=== PATIENT | male | born 1935 | race Caucasian/White ===

== ENCOUNTER 2018-10-06 11:00 | Inpatient (IN) | payer MEDICARE, OTHER ==
[2018-10-11] MEDS ORDERED: Acetaminophen 325 MG TAB PO PRN (17:38)
[2018-10-11] MEDS ORDERED: Communication Order-Pharmacy FS SCH (17:45)
[2018-10-11 17:52] VITALS: BMI 25.0
[2018-10-11 18:14] LABS: #Basophils 0.1 thou/uL (0.0-0.2); #Eosinphils 0.2 thou/uL (0.0-0.7); #Lymphocytes 1.3 thou/uL (1.20-3.40); #Monocytes 0.7 thou/uL (0.11-0.59); #Neutrophils 4.1 thou/uL (1.40-6.50); %Basophils 0.8 % (0.0-1.0); %Eosinophils 3.1 % (0.0-10.0); %Lymphocytes 20.1 % (21.0-51.0); %Monocytes 11.3 % (0.0-10.0); %Neutrophils 64.7 % (42.0-75.0); Hemoglobin 11.8 g/dL (14.0-18.0); Mean Corpuscular HGB CONC 33.4 g/dL (32.0-36.0); Mean Corpuscular Hemoglobin 29.6 pg (27.0-31.0); Mean Corpuscular Volume 88.7 fL (78.0-98.0); Platelet Count 233 thou/uL (130-400); RBC Distribution Width 12.2 % (11.5-14.5); Red Blood Cell (RBC) Count 3.97 mill/uL (4.70-6.10); White Blood Cell (WBC) Count 6.4 thou/uL (4.8-10.8)
[2018-10-11 18:22] LABS: PTT 27.7 SEC (22.9-36.1); Prothrombin Time 13.2 SEC (12.0-14.7)
[2018-10-11 18:47] LABS: Anion Gap 13 mmol/L (10-20); BUN (Urea Nitrogen) 16 mg/dL (8.4-25.7); Calc. Creatinine Clearance 71 mL/min (70-130); Calcium 9.1 mg/dL (7.8-10.44); Carbon Dioxide 25 mmol/L (23-31); Chloride 106 mmol/L (98-107); Estimated GFR-MDRD 90; Glucose 89 mg/dL (83-110); Potassium 4.1 mmol/L (3.5-5.1); Sodium 140 mmol/L (136-145)
[2018-10-11] MEDS: Atorvastatin Calcium 10 MG TAB PO SCH (21:51)
[2018-10-12] MEDS ORDERED: CEFAZOLIN 2 GM/50 ML-DEXTROSE 2 GM in Premix Bag 1 BAG IVPB SCH (06:00)
[2018-10-12] MEDS ORDERED: Fentanyl 100 MCG/2 ML VIAL ONE ×2 (06:33→09:52)
[2018-10-12] MEDS ORDERED: Sodium Chloride 0.9% 10 ML ONE (06:34)
[2018-10-12] MEDS ORDERED: Bupivacaine/Epinephrine 0.25% 30 ML VIAL ONE (06:34)
[2018-10-12] MEDS ORDERED: Lidocaine 0.5%/Epinephrine 1:200,000 50 ml Vial ONE (06:34)
[2018-10-12] MEDS ORDERED: Thrombin 5000 UNITS/5 ML VIAL ONE (06:35)
[2018-10-12] MEDS ORDERED: Bacitracin Zinc Ointment 30 gm TUBE ONE (06:35)
[2018-10-12] MEDS ORDERED: CEFAZOLIN 2 GM/50 ML BAG ONE (06:49)
[2018-10-12] MEDS ORDERED: Ondansetron HCl/PF 4 MG/2 ML Vial IVP PRN (09:31)
[2018-10-12] MEDS ORDERED: HYDROcodone/Acetaminophen 5/325 mg Tablet PO PRN (10:03)
[2018-10-12] MEDS: traMADol HCl 50 MG TAB PO PRN (11:01)
[2018-10-12] MEDS ORDERED: Rocuronium Bromide 10 MG/ML (10ML VIAL) ONE (13:10)
[2018-10-12] MEDS ORDERED: Glycopyrrolate 0.2 MG/ML 5 ML SYRINGE ONE (13:10)
[2018-10-12] MEDS ORDERED: ePHEDrine/0.9% NaCl/PF SYRINGE 50 mg/10 ml ONE (13:10)
[2018-10-12] MEDS ORDERED: Lidocaine 1% PF 5 ML VIAL ONE (13:10)
[2018-10-12] MEDS ORDERED: PROPOFOL 200 MG/20 ML VIAL ONE (13:10)
[2018-10-12] MEDS ORDERED: Ondansetron PF 4 MG/2 ML Vial ONE (13:10)
[2018-10-12] MEDS ORDERED: Dexamethasone 20 MG/5 ML VIAL ONE (13:10)
[2018-10-12] MEDS: Labetalol HCl 100 MG/20 ML VIAL SLOW IVP PRN ×2 (13:54→15:21)
[2018-10-12] MEDS ORDERED: CEFAZOLIN 2 GM in Sodium Chloride 0.9% 100 ML IVPB SCH (14:00)
[2018-10-12] MEDS ORDERED: Cepastat Lozenges 1 LOZ PO PRN (14:03)
--- NOTE | 2018-10-12 15:42 | OP ---
DATE OF PROCEDURE: 10/11/2018 PREOPERATIVE DIAGNOSES: 1. Normal-pressure hydrocephalus. 2. History of abdominal sarcoma removal. POSTOPERATIVE DIAGNOSES: 1. Normal-pressure hydrocephalus. 2. History of abdominal sarcoma removal. PROCEDURE: Diagnostic laparoscopy and laparoscopic placement of permanent intraabdominal drain (abdominal portion of ventriculoperitoneal shunt). ANESTHESIA: General. ESTIMATED BLOOD LOSS: Minimal. COMPLICATIONS: None. SPECIMENS: None. FINDINGS: Significant intraabdominal adhesions. DESCRIPTION OF PROCEDURE: The patient was taken to the operating room and laid supine on the operating room table. After general anesthetic was obtained, the abdomen and chest, side of scalp, neck were all prepped and draped in a sterile fashion. Left subcostal 5-mm Optiview trocar was attempted to be placed. The preperitoneal space was entered. The abdominal cavity cannot be entered secondary to adhesions, so incision was made below the umbilicus and cautery was dissected down to and score the fascia. Very carefully, a 5-mm laparoscopic sleeve was placed again in the preperitoneal space within dense adhesions. No obvious injury to any intraabdominal structures, but the upper abdomen cannot be seen. Incision was made subxiphoid and the cautery was used to dissect down to and score the fascia. A Skye clamp was passed into the abdomen under no tension, and a 5 port was placed and now the anterior abdomen can be seen. This, 5-mm port was then able to be placed below the umbilicus, 5-mm port was placed in the right abdomen as the RN PROVIDER RELATIONS shunt tubing was tunneled from above to the subxiphoid incision. It was passed into the abdomen through a 5-mm port site up over the liver. All port sites were infiltrated using local anesthetic. The fascial defect at the subxiphoid and infraumbilical areas were closed using PDS suture. All ports were removed and the skin was closed using 4-0 Monocryl and Dermabond. No obvious injury to any intraabdominal structures. The patient was sent returned to Recovery in stable condition. Job ID: [id number]
[2018-10-12] MEDS: CEFAZOLIN 2 GM/50 ML-DEXTROSE 2 GM in Premix Bag 1 BAG IVPB SCH ×2 (16:57→23:20)
[2018-10-12] MEDS: Atorvastatin Calcium 10 MG TAB PO SCH (20:11)
[2018-10-13] MEDS: CEFAZOLIN 2 GM/50 ML-DEXTROSE 2 GM in Premix Bag 1 BAG IVPB SCH ×2 (08:29→16:19)
--- NOTE | 2018-10-13 09:00 | PRG ---
DATE OF SERVICE: 10/13/2018 Mr. Guaman is postoperative day 1 from a ventriculoperitoneal shunt and he appears to be more lucid and conversant this morning, very pleased with how he is doing at this point. We will make arrangements for a transfer to inpatient rehab as soon as we can. Job ID: [id number]
--- NOTE | 2018-10-13 10:41 | OP ---
DATE OF PROCEDURE: 10/12/2018 PREOPERATIVE DIAGNOSIS: Normal-pressure hydrocephalus. POSTOPERATIVE DIAGNOSIS: Normal-pressure hydrocephalus. PROCEDURES PERFORMED: Right frontal ventriculoperitoneal shunt with Strata valve set to 1.5. I also did the surgery with Dr. Mu Tsai. DESCRIPTION OF PROCEDURE: After informed consent was obtained from the patient, the patient was brought to OR. Proper patient, pause, and identification were carried out. The patient was then placed in the supine position. The right cranium, neck, chest, and abdomen were all sterilely cleansed, prepared, and draped. The region of Chantal's point was identified along with a right postauricular incision was marked out. This area again was sterilely cleansed, prepared, and draped. Proper patient, pause, and identification were carried out. The wound was then opened, scalp reflected, giuseppe hole fashioned. The postauricular wound was opened. The shunt passer was introduced and peritoneal catheter was tunneled under Dr. Tsai. I then brought the shunt catheter medial and attached to the valve and this was secured. The dura was then opened. The ventricle was cannulated and connected to the shunt. Copious irrigation occurred and both wounds were washed out and placement of vancomycin powder. The patient was then emerged from anesthesia. Job ID: [id number]
[2018-10-13] MEDS: Labetalol HCl 100 MG/20 ML VIAL SLOW IVP PRN ×4 (14:11→22:32)
[2018-10-13] MEDS: traMADol HCl 50 MG TAB PO PRN (20:26)
[2018-10-13] MEDS: Atorvastatin Calcium 10 MG TAB PO SCH (20:26)
[2018-10-14] MEDS: CEFAZOLIN 2 GM/50 ML-DEXTROSE 2 GM in Premix Bag 1 BAG IVPB SCH ×3 (00:39→15:35)
[2018-10-14] MEDS: Labetalol HCl 100 MG/20 ML VIAL SLOW IVP PRN ×3 (00:40→08:13)
[2018-10-14] MEDS ORDERED: Ondansetron PF 4 MG/2 ML Vial IVP PRN (06:41)
[2018-10-14] MEDS ORDERED: Ondansetron ODT 4 MG TAB SL PRN (06:41)
[2018-10-14] MEDS ORDERED: hydrALAZINE 20 MG/ML VIAL SLOW IVP PRN (06:41)
[2018-10-14] MEDS ORDERED: cloNIDine 0.1 MG TAB PO PRN (06:42)
--- NOTE | 2018-10-14 09:06 | PRG ---
DATE OF SERVICE: 10/14/2018 Mr. Guaman is now postop day 3 following PEARL DIVER shunt placement by Dr. Herndon. We are awaiting placement in inpatient rehab. Nurse this morning regarding the patient's blood pressure as he has continued to become more increasingly hypertensive throughout the night regardless of labetalol that was greater than three separate times. Most recently, his systolic pressure was 190. I ordered p.r.n. hydralazine and p.r.n. clonidine if this continues to be a problem. However, systolic pressure this morning at recheck while I am at bedside is 168, so this may not continue to be a problem for him. He also has nausea, so I will add Zofran. Discussion yesterday from rehab. We are anticipating hopefully for discharge today over to the rehab facility. All paperwork for transfer has already been signed by Dr. Herndon and is in the chart. We will hope for discharge and we will go ahead and put orders through. Job ID: [id number]
[2018-10-14 15:53] VITALS: BP 149/70; TEMP 97.5
== END 2018-10-14 17:38 | DRG 33 ==
LOC: SURG B 10-11 16:35 → EEVIPCON 10-11 16:35 → SURG A 10-11 19:30
PROVIDERS: ADMIT Surgery; ATTEND Surgery
PROC: 00164J6 Bypass Cerebral Ventricle to Peritoneal Cavity with Synthetic Substitute, Percutaneous Endoscopic Approach (ICD-10-PCS; principal; 2018-10-11)
DX: G91.2 (Idiopathic) normal pressure hydrocephalus (principal); E78.00 Pure hypercholesterolemia, unspecified; G30.9 Alzheimer's disease, unspecified; F02.80 Dementia in other diseases classified elsewhere, unspecified severity, without behavioral disturbance, psychotic disturbance, mood disturbance, and anxiety
CPT/HCPCS: 36415; 80048; 85025; 85610; 85730; J0360; J1100; J2001; J2405; J2704; J3010; J3370; J3490

== ENCOUNTER 2018-11-08 18:12 | Inpatient (IN) | payer MEDICARE, OTHER ==
[2018-11-08] MEDS ORDERED: Mag-Al 1200 mg/1200 mg/30 ML UDCUP PO PRN (20:38)
[2018-11-08] MEDS ORDERED: Labetalol HCl 100 MG/20 ML VIAL SLOW IVP PRN (20:38)
[2018-11-08] MEDS ORDERED: Ondansetron PF 4 MG/2 ML Vial IVP PRN (20:38)
[2018-11-08] MEDS ORDERED: Acetaminophen 325 MG TAB PO PRN (20:38)
[2018-11-08] MEDS ORDERED: Docusate 100 MG CAP PO PRN (20:38)
[2018-11-08] MEDS ORDERED: Acetaminophen 650 MG in Premix Bag 1 BAG IVPB PRN (20:43)
[2018-11-08 20:49] LABS: #Basophils 0.1 thou/uL (0.0-0.2); #Eosinphils 0.2 thou/uL (0.0-0.7); #Lymphocytes 1.2 thou/uL (1.20-3.40); #Monocytes 0.6 thou/uL (0.11-0.59); #Neutrophils 5.2 thou/uL (1.40-6.50); %Basophils 0.8 % (0.0-1.0); %Eosinophils 2.5 % (0.0-10.0); %Lymphocytes 16.4 % (21.0-51.0); %Neutrophils 72.3 % (42.0-75.0); Hemoglobin 12.7 g/dL (14.0-18.0); Mean Corpuscular HGB CONC 32.8 g/dL (32.0-36.0); Mean Corpuscular Hemoglobin 29.3 pg (27.0-31.0); Mean Corpuscular Volume 89.4 fL (78.0-98.0); Mean Platelet Volume 7.6 fL (7.4-10.4); Platelet Count 226 thou/uL (130-400); RBC Distribution Width 12.3 % (11.5-14.5); Red Blood Cell (RBC) Count 4.33 mill/uL (4.70-6.10); White Blood Cell (WBC) Count 7.2 thou/uL (4.8-10.8)
[2018-11-08 20:55] LABS: PTT 23.9 SEC (22.9-36.1); Prothrombin Time 12.9 SEC (12.0-14.7)
[2018-11-08 21:14] LABS: ALT (SGPT) 26 U/L (8-55); AST (SGOT) 27 U/L (5-34); Albumin 4.2 g/dL (3.4-4.8); Alkaline Phosphatase 105 U/L (40-150); Anion Gap 11 mmol/L (10-20); BUN (Urea Nitrogen) 15 mg/dL (8.4-25.7); Bilirubin, Total 0.3 mg/dL (0.2-1.2); Calc. Creatinine Clearance 0 mL/min (70-130); Calcium 9.7 mg/dL (7.8-10.44); Carbon Dioxide 27 mmol/L (23-31); Chloride 104 mmol/L (98-107); Estimated GFR-MDRD 90; Globulin 3.4 g/dL (2.4-3.5); Glucose 92 mg/dL (83-110); Protein, Total 7.6 g/dL (5.8-8.1)
[2018-11-08 21:24] LABS: Sodium 138 mmol/L (136-145)
--- NOTE | 2018-11-08 21:36 | CT ---
CT OF BRAIN PERFORMED WITHOUT CONTRAST ENHANCEMENT: 11/08/18 HISTORY: Evaluation of ventricular shunt. Patient had ventriculoperitoneal shunt tube placed on 10/13/18. COMPARISON: MRI of brain 02/08/[address] of 10/15/18. The ventricles are now slit-like and there is large low attenuation symmetric subdural fluid collecti on probably subdural hygromas. These are probably related to the decompression of the ventricles. The re is no signs of any acute blood associated with this. There is no shift of midline structures. IMPRESSION: 1. Slit-like ventricles with ventriculoperitoneal shunt tube near the level of the foramen of Mo nro. 2. Large bilateral subdural fluid collections, probably hygromas. Findings discussed with Onel Ahn. POS: [facility]
[2018-11-08] MEDS: Famotidine/PF 20 mg/2ml Vial SLOW IVP SCH (23:25)
[2018-11-08] MEDS: hydrALAZINE 20 MG/ML VIAL SLOW IVP PRN (23:26)
[2018-11-08] MEDS: Sodium Chloride 0.9% 1,000 ML IV SCH (23:27)
[2018-11-08 23:47] VITALS: BMI 25.2
--- NOTE | 2018-11-09 02:34 | HP ---
HISTORY OF PRESENT ILLNESS: The patient is an 83-year-old male with a past medical history of Alzheimer's disease, dementia, hypertension, hyperlipidemia, who was evaluated by Neurosurgery and found to have symptoms consistent with normal pressure hydrocephalus and underwent ROLLER STRUCTURAL MILL shunt placement on 10/27/2018. Following his surgery, his postoperative course was uncomplicated and the patient was transitioned to an inpatient rehab facility. The patient had reportedly been doing well and had a routine noncontrast CT head today, which was notable for the development of large bilateral hygromas and therefore, he was transferred to [facility] for further management. I visited with the patient at the bedside. He is awake, alert, in no acute distress. He is A and O x4 and he has no focal neurologic deficits on my exam. I checked his ROLLER STRUCTURAL MILL shunt setting, which is currently at 1.5 adjusted it to a setting of 2.5. PAST MEDICAL HISTORY: Alzheimer's dementia, history of colon cancer, hypertension, hyperlipidemia, normal-pressure hydrocephalus, anemia. PAST SURGICAL HISTORY: ROLLER STRUCTURAL MILL shunt placement. SOCIAL HISTORY: He lives at [facility] in [place]. He does not smoke, drink, or use any drugs. REVIEW OF SYSTEMS: Per HPI. ALLERGIES: THE PATIENT HAS NO KNOWN DRUG ALLERGIES. PHYSICAL EXAMINATION: VITAL SIGNS: BP is 190/80, pulse is 67, respirations 18, temperature is 97.7. He is 97% on room air. He has no complaints of pain at this time. CONSTITUTIONAL: Awake, alert, in no acute distress. Oriented to person, place , and time. HEENT: Head, normocephalic and atraumatic. He has a well-healing incision site with no evidence of wound dehiscence, redness, drainage, or signs of infection. Eyes, PERRLA. Extraocular movements intact. ENT, oral mucosa is pink, intact, and moist. The patient has normal voice. NECK: Nontender to palpation. Free active range of motion. No meningismus. No nuchal rigidity. CARDIAC: Regular rate and rhythm. LUNGS: The patient is breathing comfortably with symmetric chest expansion. MUSCULOSKELETAL: Free active range of motion of all extremities. No focal motor weakness. NEUROLOGIC: A and O x4. No focal neurologic deficits are appreciated. ASSESSMENT: Bilateral hygromas, status post ventriculoperitoneal shunt placement. PLAN: We will plan to repeat noncontrast head CT tonight in the emergency department and again in the morning to assess the evolution of these hygromas. I have adjusted the patient's ROLLER STRUCTURAL MILL shunt setting from 1.5 to 2.5. We will admit the patient to the ICU for close monitoring and frequent neuro checks. The patient will be made n.p.o. tonight. I will plan to notify Dr. Herndon and JIMMY Santana, of the patient's arrival and they will also see the patient tomorrow. Job ID: [id number] MTDD
--- NOTE | 2018-11-09 08:07 | CT ---
CT BRAIN WITHOUT CONTRAST: Indication: Follow up bilateral hygromas. Comparison: 11-08-18 FINDINGS: The bilateral subdural hematomas overlying the cerebral convexities bilaterally with underlying moder ate to prominent mass effect and slit like appearance of the lateral ventricles is unchanged. The rig ht frontal ventricular peritoneal shunt catheter projecting into the right lateral ventricle anterior horn is stable in position. Mastoid air cells and paranasal sinuses are clear. No acute infarct is e vident. IMPRESSION: Stable exam. POS: [facility]
[2018-11-09 08:37] LABS: #Basophils 0.1 thou/uL (0.0-0.2); #Eosinphils 0.2 thou/uL (0.0-0.7); #Lymphocytes 1.6 thou/uL (1.20-3.40); #Monocytes 0.7 thou/uL (0.11-0.59); #Neutrophils 5.5 thou/uL (1.40-6.50); %Basophils 1.3 % (0.0-1.0); %Eosinophils 1.9 % (0.0-10.0); %Lymphocytes 19.9 % (21.0-51.0); Hemoglobin 13.1 g/dL (14.0-18.0); Mean Corpuscular HGB CONC 31.7 g/dL (32.0-36.0); Mean Corpuscular Hemoglobin 28.7 pg (27.0-31.0); Mean Corpuscular Volume 90.4 fL (78.0-98.0); Mean Platelet Volume 7.3 fL (7.4-10.4); Platelet Count 232 thou/uL (130-400); RBC Distribution Width 12.4 % (11.5-14.5); Red Blood Cell (RBC) Count 4.56 mill/uL (4.70-6.10); White Blood Cell (WBC) Count 8.1 thou/uL (4.8-10.8)
[2018-11-09 08:56] LABS: Anion Gap 15 mmol/L (10-20); BUN (Urea Nitrogen) 10 mg/dL (8.4-25.7); Calc. Creatinine Clearance 74 mL/min (70-130); Calcium 9.6 mg/dL (7.8-10.44); Carbon Dioxide 23 mmol/L (23-31); Chloride 107 mmol/L (98-107); Estimated GFR-MDRD Greater than 90; Glucose 100 mg/dL (83-110); Potassium 4.6 mmol/L (3.5-5.1); Sodium 140 mmol/L (136-145)
--- NOTE | 2018-11-09 09:00 | CON ---
DATE OF CONSULTATION: HISTORY OF PRESENT ILLNESS: Jose Guaman is an 83-year-old gentleman who was seen yesterday in the hospital with malfunctioning DOPE SPRAYER shunt. [facility] is in a [facility]. A CAT scan was done today which showed bilateral large hygromas. He became confused, agitated, headache. He has an extensive medical history, past, particularly dementia, and on exam, he was unable to give any history. This morning, he is combative, agitated. PAST MEDICAL HISTORY: Pertinent for dementia, Alzheimer disease, colon cancer, hyperlipidemia, hydrocephalus. PAST SURGICAL HISTORY: DOPE SPRAYER shunt done recently. SOCIAL HISTORY: He is in a penitentiary in [facility]. No history of tobacco or alcohol abuse. Tobacco, none. Alcohol, none. DIAGNOSTIC DATA: His CAT scan done in the ER shows bilateral hygromas. MEDICATIONS: List of medicines; 1. Catapres 0.1. 2. . 3. Vitamins. 4. Lipitor 10. ALLERGIES: NONE. REVIEW OF SYSTEMS: Difficult to obtain. PHYSICAL EXAMINATION: GENERAL: He is combative. VITAL SIGNS: Sats 100%, pulse 57, CHEST: Decreased breath sounds. No wheezing. CARDIAC: Normal S1 and S2. No gallops. ABDOMEN: No mass. LABORATORY DATA: White count 10,000, hemoglobin and hematocrit 12 and 38, platelet count is 226. Lytes are normal. IMPRESSION: 1. Severe dementia. 2. Status post ventriculoperitoneal shunt malfunction. 3. Bilateral subdural hematomas. PLAN: As per Neurosurgery. Further intervention is planned today. Pulmonary Critical Care will follow in the ICU. Await family input. Consultation in the ICU, 45 minutes of critical time. Job ID: [id number]
[2018-11-09] MEDS: Sodium Chloride 0.9% 1,000 ML IV SCH ×2 (11:00→23:31)
[2018-11-09] MEDS: Famotidine/PF 20 mg/2ml Vial SLOW IVP SCH ×2 (11:03→20:27)
[2018-11-09] MEDS ORDERED: Vancomycin HCl 1 GM in Premix Bag 1 BAG IVPB SCH (11:15)
[2018-11-09] MEDS ORDERED: CEFAZOLIN 2 GM in Premix Bag 1 BAG IVPB SCH (11:15)
--- NOTE | 2018-11-09 11:29 | PRG ---
DATE OF SERVICE: 11/09/2018 Mr. Guaman was readmitted yesterday we were told of confusion that he had. He is just under one month out from right frontal ventriculoperitoneal shunt with programmable valve set to 1.5 placement to treat normal-pressure hydrocephalus. He had been doing very well when even postoperative head CT demonstrated small subdural hygroma, but satisfactory placement of the shunt, no mass effect related to the hygroma and the patient frankly even last Tuesday was doing very well in clinic. Unfortunately, he began to develop more confusion and agitation and head CT last night demonstrated bilateral large subdural hygromas with likely subdural hematoma involvement as well. The patient was alert and oriented to times. This morning, he is confused and again frankly quite agitated and angry. By report, he has been aggressive with the nurses too. We have discussed with his family that we need to go to the operating room for giuseppe hole evacuation bilaterally for the subdural hematoma. He has significant mass effect and complete collapse of his ventricular system. This is with it even set to 1.5. We last night placed it to 2.5 and my hope is that his ventricles will expand once the pressure is relieved bilaterally. Again, we will plan to do giuseppe hole evacuation with craniotomy only if necessary. We discussed again with the family. I also discussed with the patient, but he is confused and frankly not interested in listening to the need for surgery. He has asked if we do not do anything what could happen. I have let him know that the subdural collections could get larger and render him in a coma and even threaten his life. We will plan to proceed. Informed consent was obtained again from the family given the patient's confusion. It should note his wounds have healed well. Goals, indications, risks, alternatives, and complications of bilateral giuseppe hole evacuation and possible craniotomy for hygroma/hematoma evacuation were discussed in detail with the patient's family. They understand the risks up to and including, but not limited to, wound healing issues such as infection, dehiscence, CSF leak, temporary or permanent neurologic deficit, and the need for more surgery. He understands these risks and wished to proceed with the surgery. Job ID: [id number]
[2018-11-09] MEDS ORDERED: Sodium Chloride 0.9% 0 ML ONE (12:21)
[2018-11-09] MEDS ORDERED: Bacitracin Zinc Ointment 30 gm TUBE ONE (12:21)
[2018-11-09] MEDS ORDERED: Thrombin 5000 UNITS/5 ML VIAL ONE (12:21)
[2018-11-09] MEDS ORDERED: Lidocaine 0.5%/Epinephrine 1:200,000 50 ml Vial ONE (12:21)
[2018-11-09] MEDS ORDERED: cloNIDine 0.1 MG TAB PO PRN (15:35)
[2018-11-09] MEDS: Atorvastatin Calcium 10 MG TAB PO SCH (20:27)
[2018-11-10] MEDS ORDERED: Haloperidol Lactate 5 MG/ML VIAL SLOW IVP PRN (02:49)
[2018-11-10] MEDS: hydrALAZINE 20 MG/ML VIAL SLOW IVP PRN ×2 (04:55→15:02)
--- NOTE | 2018-11-10 09:07 | PRG ---
DATE OF SERVICE: 11/10/2018 SUBJECTIVE: Jose Guaman this morning remains still agitated and encephalopathic. OBJECTIVE: VITAL SIGNS: Blood pressure 134/98, pulse 70, respiratory rate 18, sats are 100%. He had difficulty breathing. CHEST: Decreased breath sounds. No wheezing. CARDIAC: Normal S1, S2. No gallop. ABDOMEN: No masses. IMPRESSION: 1. Bilateral subdural hematoma, status post PAPER WRAPPING MACHINE OPERATOR shunt. 2. Encephalopathy. PLAN: Bur holes as per surgery. Pulmonary will follow while in the ICU. Job ID: [id number]
[2018-11-10] MEDS: Amlodipine 10 MG TAB PO SCH (10:51)
[2018-11-10] MEDS: Sodium Chloride 0.9% 1,000 ML IV SCH ×2 (10:52→12:39)
[2018-11-10] MEDS: Lisinopril 10 MG TAB PO SCH (10:52)
[2018-11-10] MEDS ORDERED: Sodium Chloride 0.9% 10 ML ONE (10:58)
[2018-11-10] MEDS ORDERED: Thrombin 5000 UNITS/5 ML VIAL ONE (10:58)
[2018-11-10] MEDS ORDERED: Bacitracin Zinc Ointment 30 gm TUBE ONE (10:59)
[2018-11-10] MEDS ORDERED: Fentanyl 100 MCG/2 ML VIAL ONE (11:02)
[2018-11-10] MEDS ORDERED: Lidocaine 0.5%/Epinephrine 1:200,000 50 ml Vial ONE (11:07)
[2018-11-10] MEDS: Famotidine/PF 20 mg/2ml Vial SLOW IVP SCH ×2 (11:14→22:20)
--- NOTE | 2018-11-10 11:33 | PRG ---
DATE OF SERVICE: 11/10/2018 Mr. Guaman yesterday became quite belligerent in both physically and verbally abusive to the nurses and the operating room team. He was very adamant that he did not want to go to surgery. I opted to postpone surgery until today when he had a chance to meet with his family. I have met with him again today and discussed bilateral giuseppe hole evacuation of his subdural collections to relieve pressure on his brain and allow his new setting of 2.5 to facilitate ventricular enlargement. He is alert and at times appropriate and at times inappropriate, again quite belligerent. He is in four-point restraints due to the physical and verbal threats he has made. Although, after a long discussion again today and the patient and his family would like to pursue surgery. As such, we will pursue surgery. Job ID: [id number]
[2018-11-10] MEDS ORDERED: Labetalol HCl 100 MG/20 ML VIAL SLOW IVP PRN (12:45)
--- NOTE | 2018-11-10 13:15 | OP ---
DATE OF PROCEDURE: 11/10/2018 SURGEON: Ashish Herndon MD. LINING BASTER: Sebastián Cerda PA-C. PREOPERATIVE DIAGNOSES: 1. Normal pressure hydrocephalus. 2. Bilateral hygroma collection. PROCEDURE PERFORMED: Bilateral parietal giuseppe holes for hygroma evacuation and all indicated procedures. SPECIMENS: None. ESTIMATED BLOOD LOSS: 50 mL. FINDINGS: Same as preoperative and postoperative diagnosis. Job ID: [id number]
[2018-11-10] MEDS ORDERED: CEFAZOLIN 2 GM in Premix Bag 1 BAG IVPB SCH (14:00)
[2018-11-10] MEDS ORDERED: Rocuronium Bromide 10 MG/ML (10ML VIAL) ONE (15:48)
[2018-11-10] MEDS ORDERED: PROPOFOL 200 MG/20 ML VIAL ONE (15:48)
[2018-11-10] MEDS ORDERED: Glycopyrrolate 0.2 MG/ML 5 ML SYRINGE ONE (15:48)
[2018-11-10] MEDS ORDERED: Lidocaine 1% PF 5 ML VIAL ONE (15:48)
--- NOTE | 2018-11-10 16:05 | OP ---
DATE OF PROCEDURE: 11/10/2018 OPERATING ROOM: OR 11. WOUND CLASSIFICATION: Type 1 wound. ROOF CEMENT AND PAINT MAKER HELPER: Sebastián Cerda PA-C. PREPROCEDURE DIAGNOSIS: Bilateral subdural hygroma and hematoma with prior shunting procedure for normal-pressure hydrocephalus. POSTPROCEDURE DIAGNOSIS: Bilateral subdural hygroma and hematoma with prior shunting procedure for normal-pressure hydrocephalus. PROCEDURE PERFORMED: Bilateral giuseppe hole evacuation of subdural hygroma and hematoma. Bilateral modifier should be added to surgery as this was a bilateral procedure, that is a modifier 50, and a modifier 78 should be added. As the surgery was done and this was an unexpected return in a global period. DESCRIPTION OF PROCEDURE: After informed consent was obtained from the patient and his family, he was brought to the OR. Proper patient, pause, and identification were carried out. He was placed under excellent general endotracheal anesthesia and positioned supine on the OR table. Two small parietal wounds were drawn out. These regions were sterilely cleansed, prepared, and draped. Proper patient, pause, and identification were carried out. Both wounds were then opened following sterile cleansing, preparation, and draping, giuseppe holes fashioned. The dura opened in a subdural hygroma and eventually hematoma was released and irrigated clear. We then closed the wounds following copious irrigation and maximizing hemostasis. Job ID: [id number]
[2018-11-10] MEDS: Haloperidol Lactate 5 MG/ML VIAL SLOW IVP PRN (16:43)
[2018-11-10] MEDS: CEFAZOLIN 2 GM in Premix Bag 1 BAG IVPB SCH (22:19)
[2018-11-10] MEDS: Atorvastatin Calcium 10 MG TAB PO SCH (22:21)
[2018-11-11] MEDS: CEFAZOLIN 2 GM in Premix Bag 1 BAG IVPB SCH ×3 (03:58→20:50)
[2018-11-11] MEDS: hydrALAZINE 20 MG/ML VIAL SLOW IVP PRN ×2 (07:07→08:44)
[2018-11-11] MEDS: Lisinopril 10 MG TAB PO SCH (08:44)
[2018-11-11] MEDS: Famotidine/PF 20 mg/2ml Vial SLOW IVP SCH ×2 (08:44→21:19)
[2018-11-11] MEDS: Amlodipine 10 MG TAB PO SCH (08:44)
[2018-11-11] MEDS: Sodium Chloride 0.9% 1,000 ML IV SCH (08:45)
--- NOTE | 2018-11-11 09:23 | CT ---
PRELIMINARY REPORT/[facility]/EMERGENTY AFTER-HOURS PROCEDURE CT Head Without Contrast EXAM DATE/TIME: 11/11/2018 4:45 AM CLINICAL HISTORY: 83 years old, male; Condition or disease; Other: Bilateral hygroma; Patient HX: F/u S/P bilateral hyg ruth evacuation. Previous shunt placement. TECHNIQUE: Axial computed tomography images of the head/brain without contrast. COMPARISON: CT Brain WO Con 11/09/2018 4:36 AM FINDINGS: Tubes, catheters and devices: Right frontal approach ventriculostomy catheter remains in place. Brain: Changes of bilateral parietal giuseppe holes, with evacuation of moderate sized bilateral subdural hygromas. Small amount of residual hygromas remain with moderate bifrontal pneumocephalus. Scattered areas of hypoattenuation, likely chronic small vessel ischemic change, demyelination, or gl iosis. No mass or hemorrhage. Ventricles: Normal. Bones/joints: Normal. Sinuses: Normal as visualized. Mastoid air cells: Normal as visualized. Soft tissues: Unremarkable. Vasculature: Atherosclerotic vascular calcifications. IMPRESSION: Changes of bilateral parietal giuseppe holes, with evacuation of moderate sized bilateral subdural hygrom as. Small amount of residual hygromas remain with moderate bifrontal pneumocephalus. Thank you for allowing us to participate in the care of your patient. Dictated and Authenticated by: Domingo Gallagher MD 11/11/2018 5:09 AM Central Time ([place] & [place]) FINAL REPORT EMERGENCY AFTER HOURS NONCONTRAST CT HEAD: Date: 11/11/18 HISTORY: Follow-up bilateral hygroma evacuation. COMPARISON: 11/09/18. IMPRESSION: 1. Ventriculoperitoneal shunt catheter remains in place, which terminates at the level of the midlin e at the level of the left lateral ventricle. 2. Interval postsurgical changes with bilateral bur holes placed and evacuation of the bilateral sub dural collections. There is now prominent pneumocephalus in the region of the subdural collections wi th significant interval decrease in size of the subdural collections, as well as decreased mass effec t on the cerebral hemispheres. There is also less mass effect on the lateral ventricles. Lateral vent ricles are now visualized on this examination. There is no midline shift. There is persistent mass ef fect on the anterior frontal lobes, and there is moderate degree of pneumocephalus present. 3. Skin clips overlying the calvarium bilaterally. Scalp soft tissue swelling is seen in the right l ateral frontoparietal region and the left parietal region posteriorly. Findings are in agreement with the preliminary report by Santana. POS: [facility]
[2018-11-11] MEDS: Haloperidol Lactate 5 MG/ML VIAL SLOW IVP PRN ×3 (10:38→21:19)
--- NOTE | 2018-11-11 12:41 | PRG ---
DATE OF SERVICE: 11/11/2018 Mr. Guaman is postoperative day #1 from giuseppe hole evacuation bilateral for subdural hygroma and hematoma evacuation. This morning, he remains with some agitation, but nonfocal exam otherwise. His head CT demonstrates bilateral air accumulations in the subdural space, not surprising with reduction in the mass effect from the subdural hygroma/hematoma. His ventricles have also started to expand, and there is less effacement of the sulci. I think he will continue to improve. He is on oxygen to help reduce the amount of nitrogen gas buildup in his intracranial space consistent with pneumocephalus. We will plan to begin to sit him up and to try to mobilize him although his agitation well improved compared to before surgery remains a threat to our nurses. Job ID: [id number]
--- NOTE | 2018-11-11 15:34 | ULT ---
BILATERAL LOWER EXTREMITY VENOUS DOPPLER WITH SPECTRAL ANALYSIS AND COLOR FLOW EVALUATION: Date: 11/11/18 HISTORY: Impaired mobility secondary to recent surgery. TECHNIQUE: Miller scale, color flow, Doppler evaluation, and spectral analysis of the bilateral lower extremity ve nous structures is performed with 2D imaging. The bilateral lower extremity common femoral, superfici al femoral, popliteal, posterior tibial, most proximal greater saphenous, and profunda femoral veins are imaged. FINDINGS: There is normal lumen compressibility, flow, and augmentation in the visualized deep venous structure s of the bilateral lower extremities. There is mild increase in pulsatility of the venous waveforms b ilaterally. IMPRESSION: No evidence of a deep venous thrombosis involving the visualized deep venous structures of bilateral lower extremities. POS: [facility]
--- NOTE | 2018-11-11 17:44 | PRG ---
DATE OF SERVICE: 11/11/2018 SUBJECTIVE: I am told by the nursing staff he is back near his baseline. OBJECTIVE: GENERAL: He is in no distress. VITAL SIGNS: His heart rate is 77, blood pressure 129/53, respiratory rate is 9, oximetry is 100%. Pre-existing baseline was one of dementia, I am told. LUNGS: Clear. HEART: Regular rhythm. ABDOMEN: Soft. EXTREMITIES: Without asymmetry or edema. LABORATORY DATA: White count 8.1 two days ago, hemoglobin 13.1 two days ago. His electrolytes are normal 2 days ago. He had Doppler venography done today showing no sonographic evidence of clots. He had a head CT done today, which showed small residual hygromas and moderate bifrontal pneumocephalus. IMPRESSION: 1. Status post evacuation of subdurals. 2. Preexisting dementia. PLAN: Continue supportive care and no real critical care requirements at this point in time. Job ID: [id number]
[2018-11-11] MEDS: Atorvastatin Calcium 10 MG TAB PO SCH (21:18)
[2018-11-12] MEDS: CEFAZOLIN 2 GM in Premix Bag 1 BAG IVPB SCH ×2 (03:00→12:06)
[2018-11-12] MEDS: Sodium Chloride 0.9% 1,000 ML IV SCH (03:00)
[2018-11-12] MEDS: Haloperidol Lactate 5 MG/ML VIAL SLOW IVP PRN ×3 (03:01→20:54)
[2018-11-12] MEDS: Famotidine/PF 20 mg/2ml Vial SLOW IVP SCH ×2 (08:55→20:54)
[2018-11-12] MEDS: Amlodipine 10 MG TAB PO SCH (09:00)
[2018-11-12 09:01] VITALS: BP 181/85
[2018-11-12] MEDS: Lisinopril 10 MG TAB PO SCH (09:01)
--- NOTE | 2018-11-12 12:17 | PRG ---
DATE OF SERVICE: 11/12/2018 SUBJECTIVE: Mr. Guaman is postoperative day 2 following bilateral giuseppe hole evacuation of mixed subdural hygroma and hematoma. Postoperative CT satisfactory with a large expected amount of pneumocephalus, although improvement in his ventricular caliber and less effacement of his cerebral sulci and improved expansion of the brain. This morning, he is very docile and responds appropriately. He states he has no complaints. He has been on Haldol, which certainly helped with his agitation. His wounds are dry and neurologically he is nonfocal with exception of occasional confusion. He is no longer restrained. We will plan to transition him to the floor. He may need a sitter, but I will defer to our nursing team in this regard. Hopefully, we can get him back to his facility tomorrow and I would be in full support of him pursuing physical therapy at his facility as I think this will maximize his improvement. Job ID: [id number]
--- NOTE | 2018-11-12 20:01 | PRG ---
DATE OF SERVICE: 11/12/2018 SUBJECTIVE: Jose Guaman has not deteriorated at all. He appears to be stable. OBJECTIVE: VITAL SIGNS: Blood pressure this afternoon is 110/46, heart rate is stable INTAKE AND OUTPUT: Today was positive 204 mL. LUNGS: Clear. HEART: Regular rhythm. ABDOMEN: Soft. NEUROLOGIC: He remains confused. His baseline is confusion with dementia. LABORATORY STUDIES: No new lab. IMPRESSION: Status post evacuation of subdural hygroma and hematoma. He is stable to move out of the Critical Care Unit in my opinion as long as he has a sitter with him. Job ID: [id number] MTDD
[2018-11-12] MEDS: Atorvastatin Calcium 10 MG TAB PO SCH (20:54)
[2018-11-13 07:55] VITALS: TEMP 98.3
[2018-11-13] MEDS: Famotidine/PF 20 mg/2ml Vial SLOW IVP SCH (08:30)
[2018-11-13] MEDS: Lisinopril 10 MG TAB PO SCH (08:31)
[2018-11-13] MEDS: Amlodipine 10 MG TAB PO SCH (08:31)
--- NOTE | 2018-11-13 09:05 | PRG ---
DATE OF SERVICE: 11/13/2018 SUBJECTIVE: This morning, he is awake, alert, and responsive. Denies any pain or discomfort. Day #2 postop bilateral giuseppe holes for bilateral subdural hematoma. OBJECTIVE: GENERAL: He appears at his baseline. VITAL SIGNS: Sats 100% on room air, temperature is 98, pulse 91, and blood pressure 150/63. CHEST: No wheezing or crackles. CARDIAC: Normal S1 and S2. No gallops. ABDOMEN: No masses. IMPRESSION: 1. Bilateral subdural hematomas. 2. Encephalopathy. 3. Hypertension. PLAN: The patient is much improved. [facility]. Job ID: [id number]
--- NOTE | 2018-11-13 09:21 | PRG ---
DATE OF SERVICE: 11/13/2018 Mr. 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 The patient is doing very well today. He is sitting in a chair, eating his breakfast. He is much less agitated. He does not complain of headache. He moves all extremities equally. At this time, he is stable for discharge back to [facility] [place] and Case Management will help facilitate this. Again, he is ready for discharge. I have also asked that in order to be placed for physical therapy as the patient will greatly benefit from this. As he has in the past had balance difficulties and gait imbalance and having recently undergone cranial surgery, again will benefit from physical therapy postoperatively. Please call with any changes in the patient's neurologic status. Job ID: [id number]
== END 2018-11-13 14:05 | DRG 25 ==
LOC: ERS 18:12 → CCU 22:57
PROVIDERS: ADMIT Neurological Surgery; ATTEND Neurological Surgery
PROC: 00C43ZZ Extirpation of Matter from Intracranial Subdural Space, Percutaneous Approach (ICD-10-PCS; principal; 2018-11-10)
DX: G96.0 Cerebrospinal fluid leak (principal); I62.00 Nontraumatic subdural hemorrhage, unspecified; G91.2 (Idiopathic) normal pressure hydrocephalus; T85.01XA Breakdown (mechanical) of ventricular intracranial (communicating) shunt, initial encounter; G93.40 Encephalopathy, unspecified; G30.9 Alzheimer's disease, unspecified; F02.80 Dementia in other diseases classified elsewhere, unspecified severity, without behavioral disturbance, psychotic disturbance, mood disturbance, and anxiety; I10 Essential (primary) hypertension; E78.5 Hyperlipidemia, unspecified; Z85.038 Personal history of other malignant neoplasm of large intestine; Y83.1 Surgical operation with implant of artificial internal device as the cause of abnormal reaction of the patient, or of later complication, without mention of misadventure at the time of the procedure
CPT/HCPCS: 36415; 70450; 80048; 80053; 85025; 85610; 85730; 93005; 93970; J0131; J0360; J1630; J2001; J2704; J3010; J3490; S0028

== ENCOUNTER 2018-11-27 12:39 | Outpatient (CLI) | payer MEDICARE, OTHER ==
--- NOTE | 2018-11-27 14:06 | CT ---
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 COMPARISON: CT brain from 11/11/2018. FINDINGS: The pneumocephalus has decreased. The right transfrontal shunt catheter is similar. There is narrow ing of the lateral ventricles bilaterally. New foci of subdural hemorrhage is noted throughout both convexities. No uncal herniation. No transitory herniation. The subdural space on the left does measure up to 1.9 cm, which is slightly decreased in size from th e 11/01/2018 examination. IMPRESSION: 1. Multifocal new areas of hemorrhage along the extraaxial convexities bilaterally, suggesting subdu ral hematomas. 2. Pneumocephalus has improved. The patient is going to see Dr. Herndon now. 3. Slightly decreased, nearly slit-like appearance of the lateral ventricles. POS: ADA
== END 2018-11-27 12:40 | disposition home or self-care (01) ==
LOC: TBSIIMAG 12:39
PROVIDERS: ATTEND Surgery
DX: G91.9 Hydrocephalus, unspecified (principal); I61.9 Nontraumatic intracerebral hemorrhage, unspecified; G93.89 Other specified disorders of brain
CPT/HCPCS: 70450